=== PATIENT | male | born 1965 | race Caucasian/White ===

== ENCOUNTER 2021-03-22 09:42 | Day surgery (SDC) | payer BC, OTHER ==
--- NOTE | 2021-03-14 15:35 | HP ---
DATE OF SURGERY: 03/22/2021 HISTORY OF PRESENT ILLNESS: The patient is a 55 year-old male who presents with complaints of a bulge in the mid to upper abdomen. States he has been lifting a lot on his 12-hour shifts that he started two years ago. He said the bulge started about two months ago. He does complain of pain at this site. It does reduce. PAST MEDICAL HISTORY: Back pain. Ptosis. Cervical radiculopathy. Hypertension. PAST SURGICAL HISTORY: None reported. ALLERGIES: NKDA. MEDICATIONS: Amlodipine, meloxicam, omeprazole, metoprolol, atorvastatin. FAMILY HISTORY: Heart disease. Hyperlipidemia. Diabetes. Hypertension. SOCIAL HISTORY: Occasional ETOH. REVIEW OF SYSTEMS: CONSTITUTIONAL: Denies fever or chills. CHEST: Denies shortness of breath. CVS: Denies chest pain. ABDOMEN: Reports mid upper abdominal pain. INTEGUMENTARY: Negative. PHYSICAL EXAMINATION: GENERAL: No acute distress. HEENT: No jaundice. Oral mucosa moist. NECK: No JVD. CHEST: Nonlabored. No shortness of breath. CVS: Regular rate and rhythm. ABDOMEN: Soft. A 4 to 5 cm ventral hernia mid upper abdomen. EXTREMITIES: No edema. NEUROLOGIC: Alert. PSYCHIATRIC: Appropriate. IMPRESSION: Symptomatic ventral hernia. PLAN: Ventral hernia repair with possible mesh with Dr. Ottoniel Rizzo. As dictated by Esthela Upton NP.
[~2021-03-22 09:42] MED LIST: Lactated Ringers 1,000 ML IV ONE; Sensorcaine 0.25% 10 ML ONE
[2021-03-22] MEDS ORDERED: CEFAZOLIN 2 GM-D5W BAG** 2 GM/50 ML ML IV SCH (10:30)
[2021-03-22] MEDS ORDERED: Lactated Ringers 1,000 ML IV SCH (10:30)
[2021-03-22] MEDS ORDERED: SUBLIMAZE 250 MCG/5 ML ONE (11:41)
[2021-03-22] MEDS ORDERED: Versed 2 MG/2 ML Injection ONE (11:41)
[2021-03-22] MEDS ORDERED: DIPRIVAN 200 MG/20 ML IV ONE (11:41)
[2021-03-22] MEDS ORDERED: Zemuron 100 MG/10 ML ONE (11:41)
[2021-03-22] MEDS ORDERED: KEFZOL 1 GM ONE (11:48)
[2021-03-22 14:38] VITALS: PULSE 79; O2SAT 94
[2021-03-22 14:41] VITALS: BP 145/85
--- NOTE | 2021-03-23 09:55 | OP ---
SURGERY DATE/TIME: 03/22/2021 1151 PREOPERATIVE DIAGNOSIS: Ventral abdominal hernia. POSTOPERATIVE DIAGNOSIS: Ventral hernia in the mid epigastrium. PROCEDURE: Ventral herniorrhaphy with mesh. SURGEON: Ottoniel Rizzo M.D. AIRBRUSH ARTIST: Esthela Upton NP. ANESTHESIA: General. COMPLICATIONS: None. CONDITION: Stable. INDICATION: A patient with symptomatic ventral hernia marked preoperatively about 4 inches in total width. The defect is certainly smaller. It is in the midline. It is in between the umbilicus and the xiphoid. DESCRIPTION OF PROCEDURE: He is taken to surgery. General anesthetic. Routine prep and drape. Time out performed. Transverse incision 1.5 inches. Hernia sac defined about 3 inches long. It was able to be mobilized away from the fascia and was able to be tucked back in. A Bicomponent circular mesh was soaked in antibiotic, was placed, was pulled up and secured with four quadrant sutures, four interquadrant sutures, 0 Prolene. Good approximation and repair. Subcutaneous tissue closed with 3-0 Vicryl. Skin closed 4-0 Vicryl. Steri-Strips applied. Sterile dressing applied. Abdominal binder applied. The patient tolerated the procedure satisfactorily.
== END 2021-03-22 14:15 | disposition home or self-care (01) ==
LOC: SDC 09:42
PROVIDERS: ATTEND Surgery
DX: K43.9 Ventral hernia without obstruction or gangrene (principal); I10 Essential (primary) hypertension; Z79.899 Other long term (current) drug therapy
CPT/HCPCS: 49560; 49568; C1781; J0690; J2250; J2704; J3010; L0625

== ENCOUNTER 2022-06-21 11:24 | Emergency (ER) | payer MEDICARE ==
--- NOTE | 2022-06-21 11:35 | ERPHSYRPT ---
- History of Present Illness Time Seen by Provider: 06/21/22 11:35 Source: patient Exam Limitations: no limitations Patient Subjective Stated Complaint: Pt states "I was in the garage and I cut my leg on glass." Triage Nursing Assessment: Pt presented alert and oriented X3, skin pwd. Pt ambulates with an upright steady gait, able to speak in clear full sentences pt in no apparent respiratory distress. Pt has laceration noted to left lateral leg , bleeding controlled. Physician History: This a 56-year-old white male patient with history of hypertension, hyperlipidemia and gastroesophageal reflux disease who was working in his garage and accidentally cut his left lateral lower leg on a piece of glass. His tetanus status is not up-to-date. Timing/Duration: today Quality: painful Severity: mild Location: extremities (Left lateral lower leg) Associated Symptoms: denies symptoms Allergies/Adverse Reactions: No Known Drug Allergies Allergy (Verified 03/22/21 10:03) Home Medications: Amlodipine Besylate [Norvasc] 10 mg PO DAILY 03/14/21 [History] Atorvastatin Calcium [Lipitor] 10 mg PO DAILY 03/14/21 [History] Metoprolol Tartrate 50 mg [Lopressor 50 MG] 50 mg PO DAILY 03/14/21 [History] Omeprazole 20 mg PO DAILY 03/14/21 [History] Hx Tetanus, Diphtheria Vaccination/Date Given: No Hx Influenza Vaccination/Date Given: No Hx Pneumococcal Vaccination/Date Given: No Immunizations Up to Date: Yes Travel Risk - International Travel Have you traveled outside of the country in past 3 weeks: No - Coronavirus Screening Are you exhibiting any of the following symptoms?: No Close contact with a COVID-19 positive Pt in past 14-21 Days: No - Vaccine Status Have you recieved a Covid-19 vaccination: Yes Plant Hr Manager: Moderna - Vaccination Dates Date of 2cond Vaccination (if applicable): 2020 - Review of Systems Constitutional: No Symptoms Eyes: No Symptoms Ears, Nose, & Throat: No Symptoms Respiratory: No Symptoms Cardiac: No Symptoms Abdominal/Gastrointestinal: No Symptoms Genitourinary Symptoms: No Symptoms Musculoskeletal: No Symptoms Skin: Other (Laceration left lateral lower leg 8 cm) Neurological: No Symptoms Psychological: No Symptoms Endocrine: No Symptoms Hematologic/Lymphatic: No Symptoms Immunological/Allergic: No Symptoms All Other Systems: Reviewed and Negative - Past Medical History Pertinent Past Medical History: Yes Neurological History: No Pertinent History ENT History: No Pertinent History Cardiac History: High Cholesterol, Hypertension Respiratory History: No Pertinent History Endocrine Medical History: No Pertinent History Musculoskeletal History: No Pertinent History GI Medical History: GERD History: No Pertinent History Psycho-Social History: Anxiety, Depression Male Reproductive Disorders: No Pertinent History Other Medical History: SKIN DISORDER, back problems,neck problems, eye problems unsure the name, pt has ot open both eyes with his hands, cannot just open them - Past Surgical History Past Surgical History: No Neuro Surgical History: No Pertinent History Cardiac: No Pertinent History Respiratory: No Pertinent History Gastrointestinal: No Pertinent History Genitourinary: No Pertinent History Musculoskeletal: No Pertinent History Male Surgical History: No Pertinent History Other Surgical History: no surgeries - Social History Smoking Status: Current every day smoker How long have you smoked: years Exposure to second hand smoke: Yes Drug Use: none Patient Lives Alone: Yes - Nursing Vital Signs Nursing Vital Signs: Initial Vital Signs Temperature 96.8 F 06/21/22 11:30 Pulse Rate 80 06/21/22 11:30 Respiratory Rate 20 06/21/22 11:30 Blood Pressure 179/96 06/21/22 11:30 O2 Sat by Pulse Oximetry 98 06/21/22 11:30 Pain Scale Pain Intensity 2 - Physical Exam General Appearance: no apparent distress, alert, anxiety Eye Exam: PERRL/EOMI, eyes nml inspection Ears, Nose, Throat Exam: normal ENT inspection, moist mucous membranes Neck Exam: normal inspection, non-tender, supple, full range of motion Respiratory Exam: airway intact, No chest tenderness, No respiratory distress Gastrointestinal/Abdomen Exam: No tenderness Rectal Exam: not done Back Exam: normal inspection, normal range of motion, No CVA tenderness, No vertebral tenderness Extremity Exam: lacerations (8 cm superficial laceration left lateral lower leg no active bleeding present. Neurovascularly intact. No tendon injury) Neurologic Exam: alert, oriented x 3, cooperative, parimutuel ticket checker II-XII nml as tested, normal mood/affect, nml cerebellar function, nml station & gait, sensation nml Skin Exam: laceration Lymphatic Exam: No adenopathy (See above description) SpO2 Interpretation: normal SpO2: 98 O2 Delivery: Room Air Procedures - Laceration/Wound Repair Left Lower Lateral Calf Time of Procedure: 12:15 Wound Location: Left, lower leg (Lateral aspect) Wound Length (cm): 8 Wound's Depth, Shape: superficial, linear Wound Explored: clean (Evaluation to the base in a bloodless field with no foreign body noted) Irrigated: Yes Hibiclens Prep: Yes Wound Repaired With: [place] (9. Aramis) Layer Closure?: No Progress: 06/21/22 12:36 The laceration repair area was cleaned and dried bacitracin ointment was applied. Nonstick gauze followed by pressure dressing was then applied. - Course Nursing assessment & vital signs reviewed: Yes Ordered Tests: Medication Summary Discontinued Medications Generic Name Dose Route Start Last Admin Trade Name Freq PRN Reason Stop Dose Admin Diphtheria/Tetanus/Acell Pertussis 0.5 ml 06/21/22 12:14 06/21/22 12:22 Tdap --Diph,Pertuss(Acell),Tet Vac/Pf 0.5 Ml Vial IM 06/21/22 12:15 0.5 ml .ONCE ONE Administration Diphtheria/Tetanus/Acell Pertussis Confirm 06/21/22 12:21 Tdap --Diph,Pertuss(Acell),Tet Vac/Pf 0.5 Ml Vial Administered 06/21/22 12:22 Dose 0.5 ml IM .STK-MED ONE Lidocaine HCl Confirm 06/21/22 11:36 Lidocaine Hcl 1% 20 Ml Mdv 20 Ml Ml Administered 06/21/22 11:37 Dose 1 ml .ROUTE .STK-MED ONE - Progress Progress: improved Counseled pt/family regarding: diagnosis, need for follow-up - Departure Departure Disposition: Home Clinical Impression: Laceration of left leg Condition: Stable Critical Care Time: No Referrals: PADMINI VILLELA PA [Primary Care Provider] - Follow up/PCP as directed Additional Instructions: Keep current dressing in place for 24 hours. Do not get the site wet. After 24 hours, may remove the dressing and wash the site daily thereafter with soap and water. After each washing, blot dry use a hairdryer to dry the site and then apply a thin layer of antibiotic ointment and then recover with a bandage. Staple removal in 8 to 10 days.
[2022-06-21] MEDS ORDERED: XYLOCAINE 1% HCL 20 ML MDV ONE (11:36)
[2022-06-21] MEDS ORDERED: Adacel Vial IM ONE ×2 (12:14→12:21)
[2022-06-21 12:31] VITALS: BP 171/95; PULSE 70
[2022-06-21 12:38] VITALS: O2SAT 98
== END 2022-06-21 12:41 | disposition home or self-care (01) ==
LOC: ED 11:24
DX: S81.812A Laceration without foreign body, left lower leg, initial encounter (principal); W25.XXXA Contact with sharp glass, initial encounter; I10 Essential (primary) hypertension; E78.5 Hyperlipidemia, unspecified; Z72.0 Tobacco use; Z79.899 Other long term (current) drug therapy
CPT/HCPCS: 12004; 90471; 90715; 99282

== ENCOUNTER 2025-01-21 09:58 | Emergency (ER) | payer MEDICARE ==
[2025-01-21 10:07] VITALS: PULSE 108; RESP 18; TEMP 97.4
--- NOTE | 2025-01-21 10:07 | ERPHSYRPT ---
- History of Present Illness Time Seen by Provider: 01/21/25 10:06 Source: patient Exam Limitations: no limitations Physician History: This is an obese 59-year-old white male patient of Dr. Ruiz who presents to the emergency department after falling down a couple of steps prior to arrival injuring and having pain in the right lower leg and ankle regions. He denies head neck injury. He also complained to me about having left-sided chest/rib pain. He does not recall injuring this area and states that the pain here in this region was present intermittently before falling. It is now chronic. Patient has no coronary artery disease diagnosis in the past. He does have a history of gastroesophageal reflux disease, hypertension and hyperlipidemia. Method of Injury: fell Occurred: just prior to arrival Quality: constant, aching Severity of Pain-Max: mild Severity of Pain-Current: mild Lower Extremities Pain: leg: right, ankle: right Modifying Factors: Improves With: movement Associated Symptoms: none Allergies/Adverse Reactions: No Known Drug Allergies Allergy (Verified 01/21/25 10:04) Home Medications: Amlodipine Besylate [Norvasc] 10 mg PO DAILY 03/14/21 [History] Atorvastatin Calcium [Lipitor] 10 mg PO DAILY 03/14/21 [History] Metoprolol Tartrate 50 mg [Lopressor 50 MG] 50 mg PO DAILY 03/14/21 [History] Omeprazole 20 mg PO DAILY 03/14/21 [History] Hx Tetanus, Diphtheria Vaccination/Date Given: No Hx Influenza Vaccination/Date Given: No Hx Pneumococcal Vaccination/Date Given: No Travel Risk - International Travel Have you traveled outside of the country in past 3 weeks: No - Emerging Infectious Disease Are you exhibiting symptoms associated with any current EIDs: No - Review of Systems Constitutional: No Symptoms Eyes: No Symptoms Ears, Nose, & Throat: No Symptoms Cardiac: Chest Pain (/Left rib pain) Abdominal/Gastrointestinal: No Symptoms Genitourinary Symptoms: No Symptoms Musculoskeletal: Fall, Injury (Right lower leg and ankle) Skin: No Symptoms Neurological: No Symptoms Psychological: No Symptoms Endocrine: No Symptoms Hematologic/Lymphatic: No Symptoms Immunological/Allergic: No Symptoms All Other Systems: Reviewed and Negative - Past Medical History Pertinent Past Medical History: Yes Neurological History: No Pertinent History ENT History: No Pertinent History Cardiac History: High Cholesterol, Hypertension Respiratory History: No Pertinent History Endocrine Medical History: Diabetes Type II Musculoskeletal History: No Pertinent History GI Medical History: GERD History: No Pertinent History Psycho-Social History: Anxiety, Depression Male Reproductive Disorders: No Pertinent History Other Medical History: SKIN DISORDER, back problems,neck problems, eye problems unsure the name, pt has ot open both eyes with his hands, cannot just open them - Past Surgical History Past Surgical History: Yes Neuro Surgical History: No Pertinent History Cardiac: No Pertinent History Respiratory: No Pertinent History Gastrointestinal: Hernia Repair Genitourinary: No Pertinent History Musculoskeletal: No Pertinent History Male Surgical History: No Pertinent History - Social History Smoking Status: Current every day smoker How long have you smoked: years Exposure to second hand smoke: Yes Drug Use: none Patient Lives Alone: Yes - Nursing Vital Signs Nursing Vital Signs: Initial Vital Signs Temperature 97.4 F 01/21/25 10:06 Pulse Rate 108 H 01/21/25 10:06 Respiratory Rate 18 01/21/25 10:06 Blood Pressure 144/118 01/21/25 10:06 O2 Sat by Pulse Oximetry 97 01/21/25 10:06 Pain Scale Pain Intensity 8 - Physical Exam General Appearance: no apparent distress, alert, anxiety, obese Eyes, Ears, Nose, Throat Exam: normal ENT inspection, moist mucous membranes Neck Exam: normal inspection, non-tender, supple, full range of motion Cardiovascular/Respiratory Exam: normal breath sounds, regular rate/rhythm, heart sounds normal, no respiratory distress, rib tenderness (Left anterior lateral ribs to palpation), No palpable fracture Gastrointestinal/Abdominal Exam: non-tender Back Exam: normal inspection, normal range of motion, No CVA tenderness, No vertebral tenderness Hips Exam: right: non-tender, normal inspection, normal range of motion, no evidence of injury Legs Exam: right leg: non-tender, normal inspection, normal range of motion, no evidence of injury Knees Exam: right knee: non-tender, normal inspection, normal range of motion, no evidence of injury Ankle Exam: right ankle: soft tissue tenderness, swelling, left ankle: non- tender, normal inspection, no evidence of injury Foot Exam: bilateral foot: non-tender, normal inspection, normal range of motion, no evidence of injury Neuro/Tendon Exam: normal sensation, normal motor functions, normal tendon functions, responds to pain, no evidence tendon injury Mental Status Exam: alert, oriented x 3, cooperative Skin Exam: normal color, warm, dry SpO2 Interpretation: normal O2 Delivery: Room Air - Course Nursing assessment & vital signs reviewed: Yes Ordered Tests: Active Orders 24 hr Category Date Time Status EKG-ER Only STAT Care 01/21/25 10:26 Active ANKLE (3 VIEWS) Stat Exams 01/21/25 10:28 Completed CHEST 1 VIEW (PORTABLE) Stat Exams 01/21/25 10:27 Completed LOWER LEG Stat Exams 01/21/25 10:28 Completed D-DIMER QUANTITATIVE Stat Lab 01/21/25 10:45 Completed TROPONIN Q4H Lab 01/21/25 10:45 Completed TROPONIN Q4H Lab 01/21/25 14:30 Ordered TROPONIN Q4H Lab 01/21/25 18:30 Ordered Lab/Rad Data: Laboratory Results 01/21/25 01/21/25 Range/Units 10:45 10:45 D-Dimer 0.44 (0.0-0.50) mg/L Troponin I < 0.012 (0.000-0.033) ng/mL - Progress Progress: improved, pain not gone completely, re-examined Progress Note: 01/21/25 11:52 My medical decision making in the assignment of low to moderate complexity is based on review of the patient's past medical history, reviewed the patient's medication list, reviewed patient drug allergy list, history physicals and physical findings on examination. The workup in this patient includes twelve- lead EKG, troponin level, D-dimer level, chest x-ray and x-ray of the patient's right tib/fib and right ankle. Differential diagnosis includes but is not limited to contusion, sprain, fracture dislocation right lower leg and ankle, rib contusion, fractured rib, pulmonary embolus, myocardial infarction 01/21/25 12:10 I interpreted the patient's laboratory data results. Based on the laboratory data results, there are no acute, emergent medical issues. 01/21/25 12:13 The following radiographic studies were interpreted by the radiologist and I reviewed the impressions: Chest x-ray shows chronic interstitial changes. Bony thorax is without fractures or deformities. X-ray of the right hip/fib shows no acute fracture or dislocation. X-ray of the right ankle shows no acute fracture or dislocation. However there is interval fight at Achilles tendon insertion site. There is a small calcaneal spur Counseled pt/family regarding: lab results, diagnosis, need for follow-up, rad results Medical Desision Making - Diagnostic Testing Diagnostic test were ordered, analyzed, and reviewed by me: Yes Radiological Interpretation: Reviewed by me, Teleradiologist Report - Risk of complications Minimal Risk: Minimal risk of morbidity - Departure Departure Disposition: Home Clinical Impression: Fall with no significant injury, Right leg pain, Nonspecific chest pain Condition: Stable Critical Care Time: No Referrals: ALINE RUIZ [Primary Care Provider] - Follow up/PCP as directed Additional Instructions: Ice pack to tender area 2-3 times a day for the next 3 days. May use Tylenol and ibuprofen for pain control if there are no contraindications to do so. Call your primary care provider today, 01/21/2025, to make arrangements to be seen in the next 3 to 5 days for further evaluation management.
[2025-01-21 11:39] VITALS: BP 165/109; O2SAT 91
--- NOTE | 2025-01-21 11:42 | XRAY ---
CLINICAL HISTORY: Fall COMPARISON: No prior study. TECHNIQUE: X-ray right tibia and fibula, 2 views: AP (Anteroposterior) and lateral projections. FINDINGS: Bone: The visualized tibia and fibula are intact. No evidence of fracture or dislocation. No focal bone lesions are identified. Soft Tissue: Scattered vascular calcifications noted. IMPRESSION: Unremarkable radiographic examination of the tibia and fibula. Disclaimer: A subtle bone abnormality or fracture may not be readily apparent on X-rays, thus clinical correlation and further imaging including follow-up CT, MRI, or follow-up X-rays are advised as needed. Electronically Signed by: Mukund Tabares MD. (01/21/2025 11:38:46 EST)
--- NOTE | 2025-01-21 11:42 | XRAY ---
CLINICAL HISTORY: Fall; left-sided rib pain COMPARISON: No prior studies are available for comparison. TECHNIQUE: An X-ray image of the chest is obtained in 1 AP projection. FINDINGS: Pulmonary Parenchyma: Cronic interstitial changes seen bilaterally with lower lung zone predominance. No evidence of pleural effusion or pleural thickening. Heart and Mediastinum: Heart size and shape are normal. Ectatic aorta noted. No mediastinal widening or masses. No hilar or mediastinal lymphadenopathy. Bony Thorax: Bony thorax appears intact without fractures or deformities. Soft Tissues: Soft tissues overlying the chest wall are unremarkable. IMPRESSION: Cronic interstitial changes seen bilaterally with lower lung zone predominance. Electronically Signed by: Mukund Tabares MD. (01/21/2025 11:37:38 EST)
--- NOTE | 2025-01-21 11:46 | XRAY ---
CLINICAL HISTORY: Fall COMPARISON: No prior studies available for comparison. TECHNIQUE: X-ray images of the right ankle were obtained in anteroposterior (AP), lateral, and mortise projections. FINDINGS: Bone Structure: Bone structure is normal and aligned. No evidence of fracture or dislocation. No osseous lesions or abnormalities identified. Joint Spaces: Joint spaces are normal. No evidence of joint effusion or subluxation. Soft Tissues: Entesophyte seen at the Achilles tendon insertion topography. Small calcaneal heel spur seen. IMPRESSION: Entesophyte seen at the Achilles tendon insertion topography. Small calcaneal heel spur Disclaimer: A subtle bone abnormality or fracture may not be readily apparent on X-rays, thus clinical correlation and further imaging including follow-up CT, MRI, or follow-up X-rays are advised as needed. Electronically Signed by: Mukund Tabares MD. (01/21/2025 11:41:36 EST)
== END 2025-01-21 12:31 | disposition home or self-care (01) ==
LOC: ED 09:58
DX: M79.661 Pain in right lower leg (principal); W10.9XXA Fall (on) (from) unspecified stairs and steps, initial encounter; R07.9 Chest pain, unspecified; I10 Essential (primary) hypertension; E78.5 Hyperlipidemia, unspecified; E11.9 Type 2 diabetes mellitus without complications; Z79.899 Other long term (current) drug therapy; Z72.0 Tobacco use
CPT/HCPCS: 36415; 71045; 73590; 73610; 84484; 85379; 93005; 99284; 99285